=== PATIENT | female | born 1960 | race Caucasian/White ===

== ENCOUNTER 2022-03-28 08:41 | Outpatient (REF) | payer OTHER, SELFPAY ==
--- NOTE | ~2022-03-28 | XR_ITS ---
EXAMINATION: XR TOES, LEFT CLINICAL INFORMATION: Injury of the left foot. COMPARISON: None TECHNIQUE: 3 views of the left toes were obtained. FINDINGS: The soft tissues appear to be mildly swollen at the lateral aspect of the fifth toe. The bones have normal alignment. The joint spaces are maintained. No fracture or subluxation. No erosions or periostitis. XR/XR toe LT min 2V IMPRESSION: No acute osseous injury in the left foot.
== END 2022-03-28 08:42 | disposition home or self-care (01) ==
LOC: HO.HMGCX 08:41
PROVIDERS: PCP Internal Medicine; Visit Provider Internal Medicine
DX: S99.922A Unspecified injury of left foot, initial encounter (principal); W19.XXXA Unspecified fall, initial encounter
CPT/HCPCS: 73660

== ENCOUNTER → 2022-12-05 07:54 | Outpatient (BNVA) | payer OTHER, SELFPAY | PROVIDERS: PCP Internal Medicine; Visit Provider Internal Medicine Rheumatology ==

== ENCOUNTER 2022-12-19 15:27 | Emergency (ER) | payer OTHER, SELFPAY ==
--- NOTE | ~2022-12-19 | CT_ITS ---
EXAMINATION: CT CHEST WITHOUT CONTRAST CLINICAL INFORMATION: Left scapula pain. Humerus/shoulder deformity. COMPARISON: None available. TECHNIQUE: Multidetector volumetric CT imaging of the chest was done. Axial MIP volume rendering provided. Sagittal and coronal reformatted images were obtained. This CT examination was performed using dose optimization techniques as appropriate, variously including the following: *Automated exposure control *Adjustment of mA and/or kV according to patient size (this includes techniques or standardized protocols for targeted exams where dose is matched to indication/reason for exam; i.e. extremities or head) *Use of iterative reconstruction technique DLP: 454 mGy-cm FINDINGS: BOLT THREADER: The lungs are expanded and clear. LUNGS: The lungs are well-expanded and clear of acute pneumonic process. There is lingular and right middle lobe platelike atelectasis. No consolidation, mass or groundglass density seen. MEDIASTINUM: The thyroid lobes are symmetric and normal. The central trachea and the bronchi are widely patent. The heart size and the great vessels are normal caliber. No abnormal size mediastinal or hilar lymph nodes seen. There is no pericardial effusion. CORONARY ARTERY CALCIFICATION: Mild coronary artery calcifications are present. PLEURA: There is no pleural effusion. No pleural mass or thickening. AXILLA: Small shotty benign lymph nodes are seen in bilateral axilla UPPER ABDOMEN: Visualized liver, spleen, pancreas and bilateral adrenal glands are unremarkable. OSSEOUS STRUCTURES: No aggressive lytic or sclerotic process seen. There is moderate ventral spondylosis there is a comminuted fracture left humeral neck with mild displacement. There is no dislocation CT/CT chest wo IV con IMPRESSION: 1. No acute cardiopulmonary process seen. 2. There is lingular and right middle lobe platelike atelectasis. 3. Comminuted left humeral neck fracture. Recommend dedicated x-rays Fleischner guidelines were followed.
--- NOTE | ~2022-12-19 | XR_ITS ---
EXAMINATION: XR KNEE, RIGHT CLINICAL INFORMATION: Acute pain COMPARISON: None available. TECHNIQUE: Four views of the right knee. FINDINGS: Anatomic alignment. No evidence of acute fracture or dislocation. Joint spaces are maintained. No significant effusion. XR/XR knee RT 3V IMPRESSION: No evidence of acute osseous abnormality.
[2022-12-19 15:36] VITALS: BP 108/60; PULSE 75; PULSE 83; RESP 18; TEMP 36.6; O2SAT 99; BMI 29.6
[2022-12-19] MEDS: oxyCODONE HCl Immed Release 5 MG TABLET PO (15:48)
[2022-12-19] MEDS: Lidocaine HCl 2 % MPF 5 ML VIAL 10 ML INFILTRATI (16:31)
--- NOTE | 2022-12-19 16:37 | ED.EXTPRO ---
HPI - Extremity Problem General Chief complaint: Extremity Injury, Upper Stated complaint: fell from standing on shoulders, per ems Time Seen by Provider: 12/19/22 16:02 Source: patient and family (Daughter) Mode of arrival: EMS History of Present Illness HPI Narrative: 62-year-old female who tripped at work over a carpet and fell forward onto her left shoulder and bilateral knees but denies head strike or loss of consciousness. She also denies any use of blood thinners. Related Data Home Medications Medication Instructions Recorded Confirmed atorvastatin 10 mg tablet 10 mg PO DAILY 03/28/22 03/28/22 famotidine 20 mg tablet 20 mg PO DAILY 03/28/22 03/28/22 hydrochlorothiazide 12.5 mg capsule 12.5 mg PO QAM 03/28/22 03/28/22 mesalamine 1,000 mg rectal 1,000 mg CA BID PRN 12/05/22 suppository Previous Rx's Medication Instructions Recorded ketorolac 10 mg tablet 10 mg PO Q6H PRN pain 5 days #20 12/19/22 tabs oxycodone 5 mg tablet 5 mg PO Q8H PRN breakthrough pain 12/19/22 #6 tabs Allergies Allergy/AdvReac Type Severity Reaction Status Date / Time No Known Allergies Allergy Verified 12/05/22 08:06 Review of Systems Review of Systems: Pertinent positives and negatives as stated in HPI PMFSH Past Medical History Source: nursing notes reviewed Medical History Arthritis of spine Back pain [place]-Walker grade 2 cystocele Breast pain Diaphragmatic hernia Fibromyalgia HBP (high blood pressure) High cholesterol Neck pain Palpitations Thyroid nodule Ulcerative proctitis Varicose veins of both legs with edema Surgical History Hx of hernia repair Hx of tubal ligation Social History Social History Household Members: Spouse Household Members Other:: Son Alcohol intake: never Patient Tobacco Use Status: Never used Tobacco Smoked in Last 30 Days: No Use of substances other than those prescribed or required for medical reasons: No Advance Directives: No Advance Directives Information Provided: No Current occupational status: employed Current occupation: Billing Physical Exam Vital Signs: Vital Signs: Last Vital Signs Temp 97.8 F 12/19/22 17:31 Pulse 74 12/19/22 17:31 Resp 16 12/19/22 17:31 BP 128/75 12/19/22 17:31 Pulse Ox 100 12/19/22 17:31 O2 Del Method Room Air 12/19/22 17:31 BMI result Body Mass Index 29.6 VITAL SIGNS: Reviewed. GENERAL: Well developed, well nourished, in no acute distress. HEAD: Normocephalic/atraumatic EYES: PERRLA, EOMI EARS: Ext canals without abnormality NOSE: Nares patent bilateral OROPHARYNX: no oral lesions noted, posterior pharynx clear NECK: Supple, no adenopathy, no midline cervical spine tenderness or step-offs noted. LUNGS: Normal breath sounds. No adventitious sounds or accessory muscle use. SpO2<99>; CHEST WALL/SHOULDER GIRDLE: No pain on palpation or noted deformities of the left clavicle, there is obvious deformity over the anterior aspect of the left shoulder with swelling and appears to have some deformity, palpation is tender over left scapula. There is no crepitus on palpation and no obvious deformity or tenderness to palpation along left chest wall. CARDIOVASCULAR: Regular rate and rhythm without noted murmurs ABDOMEN: Soft, non-tender, non-distended with bowel sounds. MUSCULOSKELETAL: No tenderness, deformities, or effusions noted on gross inspection. EXTREMITIES: No cyanosis, clubbing or edema; LEFT UPPER EXTREMITY: There is no obvious deformity of the elbow and there is full range of motion, there is no deformity of radius or ulna and there is full range of motion to include supination and pronation. SKIN: Inspection of the skin reveals no rashes NEUROLOGIC: Alert and oriented x 4. Strength and sensation to light touch were grossly intact x 4. Medications Administered Discontinued Medications Generic Name Dose Route Start Last Admin Trade Name Freq PRN Reason Stop Dose Admin Acetaminophen 975 mg 12/19/22 17:52 12/19/22 17:59 Acetaminophen 325 Mg Tablet PO 12/19/22 17:53 975 mg ONCE ONE Administration Ketorolac Tromethamine 15 mg 12/19/22 16:38 12/19/22 16:59 Ketorolac Tromethamine 30 Mg/Ml Vial IVPUSH 12/19/22 16:39 15 mg ONCE ONE Administration Lidocaine HCl 10 ml 12/19/22 16:23 12/19/22 16:31 Lidocaine Hcl 2 % Mpf 5 Ml Vial INFILTRATI 12/19/22 16:24 10 ml ONCE ONE Administration Oxycodone HCl 5 mg 12/19/22 15:45 12/19/22 15:48 Oxycodone Hcl Immed Release 5 Mg Tablet PO 12/19/22 15:46 5 mg ONCE ONE Administration Medical Decision Making Medical Decision Making MDM Narrative: Patient was experiencing carpal pedal spasms from hyperventilation but otherwise neurovascularly intact in left upper extremity which appears to be the primary injury side and suspect proximal humeral fracture and dislocation. There is some concern for possible involvement of the scapula and will proceed with CT of the chest to better characterize. Patient received oxycodone as well as having 10 cc of 2% lidocaine as an intra-articular injection for pain control. I reviewed all imaging studies and patient has obvious comminuted fracture of the left humeral neck/head. I discussed this with the orthopedist who agrees with sling and outpatient follow-up. Differential Diagnosis Please see the discussion above Consult Healthcare Provider Management of the patient was discussed with: Su[employer] Dumping Supervisor Please see the discussion above Radiology Impression Radiologist Impression: My interpretation is in agreement with radiology's impression. Discharge Plan Discharge Clinical Impression: Comminuted fracture of humerus Patient Disposition: Home, Self-Care Instructions: Arm Fracture in Adults (ED), How to Use a Sling (ED) Additional Instructions: 1. Tylenol 1000 mg, orally, every 6 hours as needed for pain control. Please do not exceed 4000 mg within 24 hours. 2. Recommend ice to unexposed skin for 5-10 minutes, 3 to 4 times a day. 3. I recommend that you sleep in a recliner to prevent unintended pain while sleeping, I recommend that you keep the sling in place unless you are doing [id number] exercises with your left wrist and elbow. 4. You have a referral to follow-up with orthopedics in should call the office in the morning to set up an appointment. Return to the ER for any worsening symptoms. Prescriptions: New ketorolac 10 mg tablet 10 mg PO Q6H PRN (Reason: pain) 5 Days Qty: 20 0RF Rx Instructions: Patient received Toradol in the emergency room. oxycodone 5 mg tablet 5 mg PO Q8H PRN (Reason: breakthrough pain) Qty: 6 0RF Rx Instructions: Partial Fill upon patient request. No Action hydrochlorothiazide 12.5 mg capsule 12.5 mg PO QAM atorvastatin 10 mg tablet 10 mg PO DAILY famotidine 20 mg tablet 20 mg PO DAILY mesalamine 1,000 mg suppository 1,000 mg CA BID PRN Referrals: Tyron Mason MD [Physician] - Renard Dai MD [Primary Care Provider] -
[2022-12-19] MEDS: Ketorolac Tromethamine 30 MG/ML VIAL 15 MG IVPUSH (16:59)
[2022-12-19 17:31] VITALS: BP 128/75; PULSE 74; RESP 16; TEMP 36.6; O2SAT 100
[2022-12-19] MEDS: Acetaminophen 325 MG TABLET 975 MG PO (17:59)
[2022-12-19 20:17] VITALS: BP 140/80; PULSE 68; RESP 16; O2SAT 99
== END 2022-12-19 20:27 | disposition home or self-care (01) ==
PROVIDERS: Emergency Provider Student in an Organized Health Care Education/Training Program; PCP Internal Medicine
DX: S42.352A Displaced comminuted fracture of shaft of humerus, left arm, initial encounter for closed fracture (principal); M25.561 Pain in right knee; M54.6 Pain in thoracic spine; R51.9 Headache, unspecified; R07.89 Other chest pain; W01.10XA Fall on same level from slipping, tripping and stumbling with subsequent striking against unspecified object, initial encounter; Y93.9 Activity, unspecified; Y92.9 Unspecified place or not applicable; Y99.9 Unspecified external cause status; Z79.899 Other long term (current) drug therapy
CPT/HCPCS: 71250; 73562; 96374; 99284; J1885

== ENCOUNTER 2023-01-02 13:09 | Outpatient (REF) | payer OTHER, SELFPAY ==
--- NOTE | ~2023-01-02 | XR_ITS ---
EXAMINATION: XR SHOULDER, LEFT XR ELBOW, LEFT CLINICAL INFORMATION: Shoulder and elbow pain. COMPARISON: CT chest 12/19/2022. TECHNIQUE: 2 views left shoulder, 3 views left elbow. FINDINGS: There is a comminuted fracture of the left humeral head and neck with mild lateral displacement of distal fracture fragments. The glenohumeral joint is intact without dislocation. No bone, joint or soft tissue abnormalities seen involving the left elbow. XR/XR elbow LT min 3V IMPRESSION: Comminuted fracture left humeral head and neck.
--- NOTE | ~2023-01-02 | XR_ITS ---
EXAMINATION: XR SHOULDER, LEFT XR ELBOW, LEFT CLINICAL INFORMATION: Shoulder and elbow pain. COMPARISON: CT chest 12/19/2022. TECHNIQUE: 2 views left shoulder, 3 views left elbow. FINDINGS: There is a comminuted fracture of the left humeral head and neck with mild lateral displacement of distal fracture fragments. The glenohumeral joint is intact without dislocation. No bone, joint or soft tissue abnormalities seen involving the left elbow. XR/XR shoulder LT min 2V IMPRESSION: Comminuted fracture left humeral head and neck.
== END 2023-01-02 13:10 | disposition home or self-care (01) ==
LOC: HO.HOSX 13:09
PROVIDERS: Visit Provider Physician Assistant
DX: S42.212A Unspecified displaced fracture of surgical neck of left humerus, initial encounter for closed fracture (principal); M25.512 Pain in left shoulder; M25.522 Pain in left elbow
CPT/HCPCS: 73030; 73080; 99202

== ENCOUNTER 2023-01-02 15:13 | Outpatient (AMB) | payer OTHER, SELFPAY ==
--- NOTE | 2023-01-02 15:36 | A.OFFVIS_ITS ---
Intake Intake Visit Reasons: fc- proximal lf humeral fx and dislocation Intake Note: Deja is 62 year old right hand dominant female who presents today for a fracture care appointment for her left - fx, DOI 12/19/22. Patient reports she tripped on the carpet and fell on the hard wood landing on her knees and trying to catch her self with both of her hands which lead her to hit her left side. She states that most of her pain is on the posterior aspect of the shoulder and it moves down to her bicep. Allergies No Known Allergies Allergy (Verified 01/02/23 15:42) HPI fc- proximal lf humeral fx and dislocation HPI Details 62-year-old right hand dominant female who presents in the office today for an evaluation of left shoulder pain. The patient presented to the ED on 12/19/2022 status post tripping at work over carpet and falling forward on to her left shoulder and bilateral knees. CT of the chest was obtained. She was placed in a sling and referred to orthopedics. She states that most of her pain is on the posterior aspect of the left shoulder that radiates down to the bicep. The patient reports left elbow pain that also began after her fall. Patient states she falls a lot. She is not sure what is causing this and feels it could be due to prior procedures or dragging her feet. She is also concerned that her glasses are causing issues with her sight and stated the floor is blurry. Patient is accompanied in the office today with her daughter. [facility] Medical History Arthritis of spine Back pain [place]-Walker grade 2 cystocele Breast pain Diaphragmatic hernia Fibromyalgia HBP (high blood pressure) High cholesterol Neck pain Palpitations Thyroid nodule Ulcerative proctitis Varicose veins of both legs with edema Surgical History Hx of hernia repair Hx of tubal ligation Social History Household Members: Spouse Household Members Other:: Son Alcohol intake: never Patient Tobacco Use Status: Never used Tobacco Current occupational status: employed Current occupation: Billing Review of Systems Const All systems reviewed & are unremarkable except as noted in HPI and below Physical Exam Const General: cooperative, healthy appearing, comfortable, no acute distress, well developed and alert Orientation/consciousness: patient oriented x3 HEENT Head: Yes normal to inspection, Yes normocephalic and Yes atraumatic Eyes General: appearance normal, both eyes and all related structures Resp Effort & Inspection: normal respiratory effort and able to speak in complete sentences Cardio Rate: regular rate Peripheral pulses: Peripheral pulses 2+ throughout GI Palpation (GI): Soft to palpation Skin Lesions: no lesions Rashes: no rashes Neuro General: patient oriented x3 Extrem Other: Left shoulder: ROM was deferred due to pain. Resolving ecchymosis from the bicep to the elbow. Able to flex, extend, pronate, and supinate elbow and perform wrist extension. Sensation intact. Office Procedures Fracture Care Fracture Billing Code: Fracture Billing Code Assessment & Plan Assessment & Plan (1) Fracture of neck of left humerus: Comment: Comminuted left humeral neck fracture 12/19/2022 Code(s): S42.212A - Unspecified displaced fracture of surgical neck of left humerus, initial encounter for closed fracture Plan Ms. Cristina Arreola is a 62-year-old right hand dominant female who presents in the office today for an evaluation of left shoulder pain. The patient presented to the ED on 12/19/2022 status post tripping at work over carpet and falling forward on to her left shoulder and bilateral knees. CT of the chest was obtained. She was placed in a sling and referred to orthopedics. She states that most of her pain is on the posterior aspect of the left shoulder that radiates down to the bicep. The patient reports left elbow pain that also began after her fall. Patient states she falls a lot. She is not sure what is causing this and feels it could be due to prior procedures or dragging her feet. She is also concerned that her glasses are causing issues with her sight and stated the floor is blurry. Patient is accompanied in the office today with her daughter. Patient states she falls a lot. She is not sure what is causing this and feels it could be due to prior procedures or dragging her feet. I will send a prescription for lidocaine patch to the pharmacy. She also inquired if she could use the CBD oil with peppermint, which she is able to do. She can apply heat to the elbow to help give relief. I educated the patient that she can come out of the sling to work on ROM exercises to work on with the elbow, hand, and wrist. I also instructed her to let the arm hang. She will be given an ultra sling, off the shelf, while in the office today. Follow up will be in 2 weeks with repeat x-rays for possible anticipation of beginning physical therapy, or sooner if needed. X-rays of the left shoulder which were obtained while in the office today and were reviewed by , Zayda Reyes PA-C, redemonstrates a comminuted left humeral neck fracture. X-rays of the left elbow which were obtained while in the office today and were reviewed by me, Zayda Reyes PA-C, revealed no acute fractures or dislocation. CT of the chest, obtained on 12/19/2022, revealed: Comminuted left humeral neck fracture. Recommend dedicated x-rays Orders: Orders XR shoulder LT min 2V 01/02/23 M25.519 - Pain in unspecified shoulder XR elbow LT min 3V 01/02/23 M25.529 - Pain in unspecified elbow Patient Instructions: Scribed for Zayda Reyes PA-C by Belinda Calhoun medical collections, on 01/02/2023 at 3:18 pm, EST. Your attestation Coding Level of Care Code New Pt Level 4 (15480) Diagnoses Fracture of neck of left humerus S42.212A CPT Codes Fracture Care - Fracture Billing Code: Fracture Billing Code ([id number])
== END 2023-01-02 16:00 | disposition home or self-care (01) ==
PROVIDERS: PCP Internal Medicine; Visit Provider Physician Assistant
DX: S42.212A Unspecified displaced fracture of surgical neck of left humerus, initial encounter for closed fracture (principal); M25.522 Pain in left elbow
CPT/HCPCS: 99204

== ENCOUNTER 2023-01-16 08:23 | Outpatient (REF) | payer OTHER, SELFPAY ==
--- NOTE | ~2023-01-16 | XR_ITS ---
EXAMINATION: XR HIP, LEFT CLINICAL INFORMATION: Left hip pain. COMPARISON: None available. TECHNIQUE: Two views of the left hip. AP pelvis. FINDINGS: PELVIS: AP view of the pelvis does not demonstrate any evidence of acute fracture or diastases. There is significant degenerative disc disease seen at the L4-L5 and L5-S1 levels. There is some mild spurring of the sacroiliac joints without evidence of fusion or widening. Changes of enthesopathy seen about the pelvis. Hip joint spaces appear maintained with some collar spurring present. LEFT HIP: There is collar spurring present about the left hip joint. No acute fracture or dislocation is evident. There appears to be a region of central osteopenia of the femoral head which appears somewhat prominent to be a normal fovea. There is some sclerosis present about this region but some of which appears to be related to the acetabulum or overlying soft tissues. No definite femoral head collapse is identified. There is a prominent bump about the superior aspect of the femoral neck consistent with impingement. XR/XR hip LT w PEL1V IMPRESSION: 1. Mild degenerative change of the hip joints. 2. bump of the left femoral neck superiorly consistent with impingement syndrome. 3. Question region of diminished density about the left femoral head which may represent early finding of avascular necrosis without evidence of femoral head collapse. MRI would be of help in further evaluation if clinically indicated. Comparison with old studies was performed at another institution could evaluate chronicity of finding.
--- NOTE | ~2023-01-16 | XR_ITS ---
EXAMINATION: XR SHOULDER, LEFT CLINICAL INFORMATION: Left shoulder pain. COMPARISON: 01/02/2023 TECHNIQUE: Two views of the left shoulder. FINDINGS: There is again noted to be a comminuted fracture of the proximal left humerus without change in alignment from study of 01/02/2023. Fracture involves the surgical neck and humeral head with some mild displacement of the greater tuberosity laterally. No dislocation is noted. There is a small amount of periosteal new bone formation present but with fracture lines still being evident. XR/XR shoulder LT min 2V IMPRESSION: No significant change in alignment of healing comminuted fracture proximal left humerus.
== END 2023-01-16 08:24 | disposition home or self-care (01) ==
LOC: HO.HOSX 08:23
PROVIDERS: Visit Provider Physician Assistant
DX: S42.212D Unspecified displaced fracture of surgical neck of left humerus, subsequent encounter for fracture with routine healing (principal); S70.02XD Contusion of left hip, subsequent encounter; W01.0XXD Fall on same level from slipping, tripping and stumbling without subsequent striking against object, subsequent encounter
CPT/HCPCS: 73030; 73502

== ENCOUNTER 2023-01-16 11:17 | Outpatient (AMB) | payer OTHER, SELFPAY ==
[2023-01-16 11:21] VITALS: BMI 29.6
--- NOTE | 2023-01-16 11:21 | A.OFFVIS_ITS ---
Intake Vital Signs 01/16/23 11:21 Height 5 ft 7 in Weight 189 lb BMI 29.6 Intake Visit Reasons: OV-proximal lf humeral fx and dislocation Intake Note: Deja is a 62 year old right hand dominant female who presents today for a follow up appointment for her left shoulder fx, DOI 12/19/22. Patient reports pinching sensation near shoulder blade. States most of her pain is in her bicep area but has had improvement with numbness. Patient states that she continues to have a intermittent burning pain in her left hip that radiates into buttocks area. Denies any numbness or tingling. Allergies No Known Allergies Allergy (Verified 01/16/23 11:22) HPI OV-proximal lf humeral fx and dislocation HPI Details 62-year-old right hand dominant female who presents in the office today for a follow up of left humerus neck fracture, which occurred on 12/19/2022 status post tripping at work over carpet and falling forward on to her left shoulder and bilateral knees. She claims to have a pinching sensation near the left shoulder blade. She states most of her pain is in her bicep area, but the numbness has improved. Patient states she still has intermittent burning pain in the left hip that radiates to the buttock. She denies numbness or tingling. [facility] Medical History Arthritis of spine Back pain [place]-Walker grade 2 cystocele Breast pain Diaphragmatic hernia Fibromyalgia HBP (high blood pressure) High cholesterol Neck pain Palpitations Thyroid nodule Ulcerative proctitis Varicose veins of both legs with edema Surgical History Hx of hernia repair Hx of tubal ligation Social History Household Members: Spouse Household Members Other:: Son Alcohol intake: never Patient Tobacco Use Status: Never used Tobacco Current occupational status: employed Current occupation: Billing Review of Systems Const All systems reviewed & are unremarkable except as noted in HPI and below Physical Exam Vital Signs: BMI result Body Mass Index 29.6 Const General: cooperative, healthy appearing and no acute distress Resp Effort & Inspection: normal respiratory effort and able to speak in complete sentences Cardio Rate: regular rate Peripheral pulses: Peripheral pulses 2+ throughout GI Palpation (GI): Soft to palpation Skin Lesions: no lesions Rashes: no rashes Extrem Other: Left shoulder: ROM was deferred due to pain. Resolving ecchymosis from the bicep to the elbow. Able to flex, extend, pronate, and supinate elbow and perform wrist extension. Sensation intact. Left hip: Able to perform straight leg raise. Tenderness to palpation over the greater trochanteric bursa. NVI. Assessment & Plan Assessment & Plan (1) Fracture of neck of left humerus: Comment: Comminuted left humeral neck fracture 12/19/2022 Code(s): S42.212A - Unspecified displaced fracture of surgical neck of left humerus, initial encounter for closed fracture (2) Contusion of left hip: Code(s): S70.02XA - Contusion of left hip, initial encounter Plan Ms. Cristina Arreola is a 62-year-old right hand dominant female who presents in the office today for a follow up of left humerus neck fracture, which occurred on 12/19/2022 status post tripping at work over carpet and falling forward on to her left shoulder and bilateral knees. She claims to have a pinching sensation near the left shoulder blade. She states most of her pain is in her bicep area, but the numbness has improved. She states the muscle in her back by the shoulder is very irritated. Patient states she still has intermittent burning pain in the left hip that radiates to the buttock. She denies numbness or tingling. The patient will begin to work with physical therapy on left shoulder ROM. Sling for comfort but encouraged ROM out of the sling. Follow up will be in 4-6 weeks, or sooner if needed. X-rays of the left shoulder which were obtained while in the office today and were reviewed by me, Zayda Reyes PA-C, revealed routine healing of the left humeral neck fracture. X-rays of the left hip which were obtained while in the office today and were reviewed by , Zayda Reyes PA-C, revealed no acute fracture or dislocation. Some osteoarthritis. Orders: Orders XR shoulder LT min 2V Today M25.519 - Pain in unspecified shoulder XR hip LT w PEL1V Today M25.559 - Pain in unspecified hip Patient Instructions: Scribed for Zayda Reyes PA-C by Belinda Calhoun, medical delivery driver, on 01/16/2023 at 11:29 am, EST. Your attestation Coding Level of Care Code Global (94220) Diagnoses Fracture of neck of left humerus S42.212A Contusion of left hip S70.02XA
== END 2023-01-16 12:18 | disposition home or self-care (01) ==
PROVIDERS: PCP Internal Medicine; Visit Provider Physician Assistant
DX: S42.212D Unspecified displaced fracture of surgical neck of left humerus, subsequent encounter for fracture with routine healing (principal); S70.02XD Contusion of left hip, subsequent encounter
CPT/HCPCS: 99213

== ENCOUNTER 2023-02-14 05:27 | Outpatient (REF) | payer OTHER, SELFPAY ==
--- NOTE | ~2023-02-14 | XR_ITS ---
EXAMINATION: XR SHOULDER, LEFT CLINICAL INFORMATION: Left shoulder pain COMPARISON: Radiographs 01/16/2023 TECHNIQUE: Two views of the left shoulder. FINDINGS: No significant change in the appearance of the comminuted humeral head fracture. Stable alignment. No definite osseous bridging. Minimal callus formation. XR/XR shoulder LT min 2V IMPRESSION: No significant change in the appearance of the comminuted humeral head fracture. Minimal callus formation.
== END 2023-02-14 05:28 | disposition home or self-care (01) ==
LOC: HO.HOSX 05:27
PROVIDERS: Visit Provider Physician Assistant
DX: S42.212D Unspecified displaced fracture of surgical neck of left humerus, subsequent encounter for fracture with routine healing (principal); M25.512 Pain in left shoulder
CPT/HCPCS: 73030

== ENCOUNTER 2023-02-14 11:21 | Outpatient (AMB) | payer OTHER, SELFPAY ==
[2023-02-14 11:28] VITALS: BMI 29.6
--- NOTE | 2023-02-14 11:28 | MHC.OFFVIS ---
Intake Vital Signs 02/14/23 11:28 Height 5 ft 7 in Weight 189 lb BMI 29.6 Handedness Right Intake Visit Reasons: OV-proximal lf humeral fx and dislocation Intake Note: Deja is 62 year old right hand dominant female who presents today for a follow up appointment for her left proximal humeral fx, DOI 12/19/22. Patient reports some discomfort and pain during and after physical therapy. She states that PT is going well but she is slowly showing improvements. Allergies No Known Allergies Allergy (Verified 02/14/23 11:32) HPI OV-proximal lf humeral fx and dislocation HPI Details 62-year-old right hand dominant female who presents in the office today for a follow up of left humerus neck fracture, which occurred on 12/19/2022 status post tripping at work over carpet and falling forward on to her left shoulder and bilateral knees. The patient reports mild discomfort and pain during and after physical therapy. She states physical therapy is going well, but she is slowly showing improvement. [facility] Medical History Arthritis of spine Back pain [place]-Walker grade 2 cystocele Breast pain Diaphragmatic hernia Fibromyalgia HBP (high blood pressure) High cholesterol Neck pain Palpitations Thyroid nodule Ulcerative proctitis Varicose veins of both legs with edema Surgical History Hx of hernia repair Hx of tubal ligation Social History Household Members: Spouse Household Members Other:: Son Alcohol intake: never Patient Tobacco Use Status: Never used Tobacco Current occupational status: employed Current occupation: Billing Review of Systems Const All systems reviewed & are unremarkable except as noted in HPI and below Physical Exam Vital Signs: BMI result Body Mass Index 29.6 Const General: cooperative, healthy appearing and no acute distress Resp Effort & Inspection: normal respiratory effort and able to speak in complete sentences Cardio Rate: regular rate Peripheral pulses: Peripheral pulses 2+ throughout GI Palpation (GI): Soft to palpation Skin Lesions: no lesions Rashes: no rashes Extrem Other: Left shoulder: ROM 20degress of FF. Able to reach side of her head. Able to flex, extend, pronate, and supinate elbow and perform wrist extension. Sensation intact. Assessment & Plan Assessment & Plan (1) Fracture of neck of left humerus: Comment: Comminuted left humeral neck fracture 12/19/2022 Code(s): S42.212A - Unspecified displaced fracture of surgical neck of left humerus, initial encounter for closed fracture (2) Contusion of left hip: Code(s): S70.02XA - Contusion of left hip, initial encounter Plan: 62-year-old right hand dominant female who presents in the office today for a follow up of left humerus neck fracture, which occurred on 12/19/2022 status post tripping at work over carpet and falling forward on to her left shoulder and bilateral knees. The patient reports mild discomfort and pain during and after physical therapy. She states physical therapy is going well, but she is slowly showing improvement. Ms. Arreola will continue to attend physical therapy to work on ROM. X-rays obtained in the office today reveal routine healing of the left proximal humerus fracture. I will submit for a topical pain compounding cream. I think this would be beneficial for the patient's pain management. She will f/u in 6 weeks with repeat x-rays, sooner if needed. Plan Ms. Arreola is a 62-year-old right hand dominant female who presents in the office today for a follow up of left humerus neck fracture, which occurred on 12/19/2022 status post tripping at work over carpet and falling forward on to her left shoulder and bilateral knees. The patient reports mild discomfort and pain during and after physical therapy. She states physical therapy is going well, but she is slowly showing improvement. X-rays of the left shoulder which were obtained while in the office today and were reviewed by me, Zayda Reyes PA-C, revealed Orders: Orders XR shoulder LT min 2V Today M25.519 - Pain in unspecified shoulder Patient Instructions: Scribed for Zayda Reyes PA-C by Belinda Calhoun medical assistant, on 02/14/2023 at 11:25 am, EST. Coding Level of Care Code Global (02729) Diagnoses Fracture of neck of left humerus S42.212A Contusion of left hip S70.02XA
== END 2023-02-14 11:58 | disposition home or self-care (01) ==
PROVIDERS: PCP Internal Medicine; Visit Provider Physician Assistant
DX: S42.212D Unspecified displaced fracture of surgical neck of left humerus, subsequent encounter for fracture with routine healing (principal); S70.02XA Contusion of left hip, initial encounter
CPT/HCPCS: 99213

== ENCOUNTER 2023-03-28 07:58 | Outpatient (REF) | payer OTHER, SELFPAY ==
--- NOTE | ~2023-03-28 | XR_ITS ---
EXAMINATION: XR SHOULDER, LEFT CLINICAL INFORMATION: Reason for Exam M25.519 - Pain in unspecified shoulder COMPARISON: Shoulder radiographs 02/14/2023 TECHNIQUE: Two views of the shoulder. FINDINGS: Again seen is a comminuted fracture of the humeral head and neck in unchanged alignment not significantly changed from prior. Mild degenerative changes of the acromioclavicular joint with degenerative spurring. Soft tissues are unremarkable. XR/XR shoulder LT min 2V IMPRESSION: Again seen is a comminuted fracture of the humeral head and neck in unchanged alignment not significantly changed from prior.
== END 2023-03-28 07:59 | disposition home or self-care (01) ==
LOC: HO.HOSX 07:58
PROVIDERS: Visit Provider Physician Assistant
DX: S42.212D Unspecified displaced fracture of surgical neck of left humerus, subsequent encounter for fracture with routine healing (principal)
CPT/HCPCS: 73030; 99212

== ENCOUNTER 2023-03-28 12:39 | Outpatient (AMB) | payer OTHER, SELFPAY ==
[2023-03-28 13:06] VITALS: BMI 29.6
--- NOTE | 2023-03-28 13:06 | MHC.OFFVIS ---
Intake Vital Signs 03/28/23 13:06 Height 5 ft 7 in Weight 189 lb BMI 29.6 Handedness Right Intake Visit Reasons: OV-proximal lf humeral fx and dislocation Intake Note: Deja is 62 year old right hand dominant female who presents today for a follow up appointment for her left proximal humeral fx, DOI 12/19/22. Patient reports she is doing well but still having discomfort. She states that PT is going well. Allergies No Known Allergies Allergy (Verified 03/28/23 13:09) HPI OV-proximal lf humeral fx and dislocation HPI Details 62-year-old female who presents in the office today for a follow up of left humerus neck fracture, which occurred on 12/19/2022 status post tripping at work over carpet and falling forward on to her left shoulder and bilateral knees. The patient reports she is doing good. She states physical therapy has been going good as well and she has noticed some improvement. She reports still having limited ROM. She states she is unable to turn on light switches or put cups above her head. She states she is unable to lift her arm any higher like it is stuck. She states she was told by physical therapy to talk about the lump she has on the left shoulder. She states she drove for the first time yesterday, 03/27/2023, and feels she did it fairly easy. She states she has struggled with using the keyboard at work and states she could not get the arm up high enough to work. [facility] Medical History Arthritis of spine Back pain [place]-Walker grade 2 cystocele Breast pain Diaphragmatic hernia Fibromyalgia HBP (high blood pressure) High cholesterol Neck pain Palpitations Thyroid nodule Ulcerative proctitis Varicose veins of both legs with edema Surgical History Hx of hernia repair Hx of tubal ligation Social History Household Members: Spouse Household Members Other:: Son Alcohol intake: never Patient Tobacco Use Status: Never used Tobacco Current occupational status: employed Current occupation: Billing Review of Systems Const All systems reviewed & are unremarkable except as noted in HPI and below Physical Exam Vital Signs: BMI result Body Mass Index 29.6 Const General: cooperative, healthy appearing and no acute distress Resp Effort & Inspection: normal respiratory effort and able to speak in complete sentences Cardio Rate: regular rate Peripheral pulses: Peripheral pulses 2+ throughout GI Palpation (GI): Soft to palpation Skin Lesions: no lesions Rashes: no rashes Extrem Other: Left shoulder: ROM 45 degress of FF and ABD. Able to reach side of her head. Able to flex, extend, pronate, and supinate elbow and perform wrist extension. Sensation intact. Assessment & Plan Assessment & Plan (1) Fracture of neck of left humerus: Comment: Comminuted left humeral neck fracture 12/19/2022 Code(s): S42.212A - Unspecified displaced fracture of surgical neck of left humerus, initial encounter for closed fracture Qualifiers: Encounter type: subsequent encounter Fracture healing: with routine healing Fracture type: closed Qualified Code(s): S42.212D - Unspecified displaced fracture of surgical neck of left humerus, subsequent encounter for fracture with routine healing Plan Ms. Arreola is a 62-year-old female who presents in the office today for a follow up of left humerus neck fracture, which occurred on 12/19/2022 status post tripping at work over carpet and falling forward on to her left shoulder and bilateral knees. The patient reports she is doing good. She states physical therapy has been going good as well and she has noticed some improvement. She reports still having limited ROM. She states she is unable to turn on light switches or put cups above her head. She states she is unable to lift her arm any higher like it is stuck. She states she was told by physical therapy to talk about the lump she has on the left shoulder. She states she drove for the first time yesterday, 03/27/2023, and feels she did it fairly easy. She states she has struggled with using the keyboard at work and states she could not get the arm up high enough to work. The patient will be referred for an MRI at [place] to further evaluate the integrity of the left shoulder. I educated the patient that she will need to bring the disc and radiology report with her for her follow up appointment and she demonstrated understanding. I would also like the patient to see Dr. Mason to further discuss if the patient needs surgical intervention. I would like for her to wait to progress to weight lifting in physical therapy until after her follow up. 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 Follow up will be after the MRI is obtained with Dr. Mason, or sooner if needed. X-rays of the left shoulder obtained while in the office today and reviewed by me, Zayda Reyes PA-C, revealed routine healing of a left humerus neck fracture. Orders: Orders XR shoulder LT min 2V Today M25.519 - Pain in unspecified shoulder Patient Instructions: Scribed for Zayda Reyes PA-C by Belinda Calhoun medical health researcher, on 03/28/2023 at 12:41 pm, EST. Coding Level of Care Code Est Pt Level 4 (91383) Diagnoses Closed fracture of neck of left humerus with routine healing, subsequent encounter S42.212D Encounter type: subsequent encounter Fracture healing: with routine healing Fracture type: closed
== END 2023-03-28 13:26 | disposition home or self-care (01) ==
PROVIDERS: PCP Internal Medicine; Visit Provider Physician Assistant
DX: S42.212D Unspecified displaced fracture of surgical neck of left humerus, subsequent encounter for fracture with routine healing (principal)
CPT/HCPCS: 99214

== ENCOUNTER 2023-04-18 09:20 | Outpatient (REF) | payer OTHER, SELFPAY ==
--- NOTE | ~2023-04-18 | XR_ITS ---
EXAMINATION: XR SHOULDER, LEFT CLINICAL INFORMATION: Pain in unspecified shoulder. COMPARISON: 03/28/2023, 02/14/2023 TECHNIQUE: Three views of the left shoulder. FINDINGS: Redemonstration of a comminuted fracture of the humeral head and neck in unchanged alignment, with increased sclerosis since 02/14/2023 suggesting some interval healing. Mild degenerative changes in the acromioclavicular joint with joint space narrowing and hypertrophic change. XR/XR shoulder LT min 2V IMPRESSION: Redemonstration of a comminuted fracture of the humeral head and neck in unchanged alignment, with increased sclerosis since 02/14/2023 suggesting some interval healing.
== END 2023-04-18 09:21 | disposition home or self-care (01) ==
LOC: HO.HOSX 09:20
PROVIDERS: Visit Provider Orthopaedic Surgery
DX: S42.212D Unspecified displaced fracture of surgical neck of left humerus, subsequent encounter for fracture with routine healing (principal)
CPT/HCPCS: 73030; 99212

== ENCOUNTER 2023-04-18 09:41 | Outpatient (AMB) | payer OTHER, SELFPAY ==
[2023-04-18 09:48] VITALS: BMI 29.6
--- NOTE | 2023-04-18 09:48 | A.OFFVIS_ITS ---
Intake Vital Signs 04/18/23 09:48 Height 5 ft 7 in Weight 189 lb BMI 29.6 Intake Visit Reasons: OV-proximal lf humeral fx and dislocation Intake Note: Deja is 62 year old right hand dominant female who presents today for a follow up appointment for her left proximal humeral fx, DOI 12/19/22. Patient reports that she is doing well, she has concerns of ROM. She is working with physical therapy but is still struggling with motion. Allergies No Known Allergies Allergy (Verified 04/18/23 09:52) HPI OV-proximal lf humeral fx and dislocation HPI Details Deja is a 62 year old woman who presents in the office today for a follow up of left humerus neck fracture after a fall, DOI: 12/19/22. This is a work-related injury. She says she is doing ok. She recently completed an MRI of her shoulder due to her limited ROM, particularly with overhead activity, and is here for a review. She states physical therapy has been going well and she has noticed some im provement. She says she is unable to turn on light switches or put cups above her head. She states she is unable to lift her arm any higher like it is stuck. [facility] Medical History Arthritis of spine Back pain [place]-Walker grade 2 cystocele Breast pain Diaphragmatic hernia Fibromyalgia HBP (high blood pressure) High cholesterol Neck pain Palpitations Thyroid nodule Ulcerative proctitis Varicose veins of both legs with edema Surgical History Hx of hernia repair Hx of tubal ligation Social History Household Members: Spouse Household Members Other:: Son Alcohol intake: never Patient Tobacco Use Status: Never used Tobacco Current occupational status: employed Current occupation: Billing Review of Systems Const All systems reviewed & are unremarkable except as noted in HPI and below Physical Exam Vital Signs: BMI result Body Mass Index 29.6 Const General: no acute distress, alert and awake Orientation/consciousness: patient oriented x3 HEENT Head: Yes normocephalic and Yes atraumatic Eyes EOM: EOMs intact bilaterally Resp Effort & Inspection: normal respiratory effort and able to speak in complete sentences Cardio Jugular venous distension: no JVD Skin General skin exam: turgor normal Rashes: no rashes Neuro General: patient oriented x3 Extrem Other: 15 deg ER 40 deg abd 60 deg FF Psych Appearance: grossly normal Affect: normal affect Attitude: cooperative Results Reviewed Results Reviewed: I personally reviewed relevant radiographs. Healing proximal humerus fracture Assessment & Plan Assessment & Plan (1) Fracture of neck of left humerus: Comment: Comminuted left humeral neck fracture 12/19/2022 Code(s): S42.212A - Unspecified displaced fracture of surgical neck of left humerus, initial encounter for closed fracture Qualifiers: Encounter type: subsequent encounter Fracture healing: with routine healing Fracture type: closed Qualified Code(s): S42.212D - Unspecified displaced fracture of surgical neck of left humerus, subsequent encounter for fracture with routine healing Plan: This is a 62 year old woman with a comminuted left humeral neck fracture, from a fall at work, DOI: 12/19/22. She is stiff and should continue PT. May return to light duty with no lifting, no left handed work and no typing. f/u 6 weeks Orders: Orders XR shoulder LT min 2V Today M25.519 - Pain in unspecified shoulder Coding Level of Care Code Est Pt Level 3 (20677) Diagnoses Closed fracture of neck of left humerus with routine healing, subsequent encounter S42.212D Encounter type: subsequent encounter Fracture healing: with routine healing Fracture type: closed
== END 2023-04-18 10:26 | disposition home or self-care (01) ==
PROVIDERS: PCP Internal Medicine; Visit Provider Orthopaedic Surgery
DX: S42.212D Unspecified displaced fracture of surgical neck of left humerus, subsequent encounter for fracture with routine healing (principal)
CPT/HCPCS: 99213

== ENCOUNTER 2023-04-29 08:00 | Outpatient (RCR) | payer OTHER, SELFPAY ==
--- NOTE | 2023-02-03 14:59 | MHC.PT.EP ---
[facility] [place] [facility] [place] [facility] [place] [facility] [address] [place] Augustin [address] [phone] F: [phone] F: [phone] F: [phone] F: [phone] Physical Therapy Plan of Care Date of Evaluation: Date of Surgery: n/a Diagnosis: displaced fx of L humerus Assessment: Patient is a 62 year old female presenting to PT with L humerus fx. Pt reports onset of pain began 12/19/2022 due to tripping and falling at work. She presents today with impairments in pain, shoulder ROM, posture, shoulder strength. 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 Pt expresses detention goal of returning to PLOF, and is motivated to work towards this in PT. Clinical presentation today is most consistent with signs and sx associated with L humerus fx sustained 12/19/2022 and pt will benefit from skilled PT 2 week x 10 weeks to address the following problems and impairments noted upon evaluation: pain, shoulder ROM, posture, shoulder strength. These problems limit the patient with the following functional activities: reaching, lifting, ADLs, work, sleep. The prescribed treatment plan of care is medically necessary. Co-morbidities of fibromyalgia were identified and taken into considerations of plan of care. Pt was educated on HEP, role of PT, prognosis, POC. Frequency and Duration: The patient will be seen 2 x week x 10 weeks Short Term Goals: Pt will demonstrate L shoulder ROM equal B in 5 weeks. Pt will demonstrate L shoulder MMT strength at least 3/5 in 5 weeks. Pt will demonstrate improved postural awareness by sitting with biomechanically correct posture without cues throughout session to improve overall postural function in 5 weeks. Snf Goals: Pt will demonstrate improved SPADI score by 13 points in 10 weeks for improved functional mobility. Pt will demonstrate ability to reach and lift pending MD clearance with min to no pain in 10 weeks for return to PLOF. Pt will demonstrate L shoulder MMT strength to 4+/5 in 10 weeks for improved ability to complete ADLs. Pt will demonstrate ability to sit for prolonged periods of time with min to no pain in10 weeks to prepare for return to work. Treatment Plan: Modalities to reduce pain, spasms and effusion. Manual therapy to restore motion and function. Therapeutic exercise to improve strength and flexibility. Neuromuscular re-education for posture and balance. Therapeutic activities to return to functional activities of daily living. Electronically signed by: Montse Torres, PT, DPT, ATC Please sign and return to therapist. Thank you for your referral.
--- NOTE | 2023-06-02 07:13 | MHC.PT.DC ---
[facility] [place] [facility] [place] Office [place] Office [address] [place] [address] [phone] F: [phone] F: [phone] F: [phone] F: [phone] Physical Therapy Discharge Report Diagnosis: displaced fx of L humerus Date of Surgery: n/a Date of Evaluation: 02/03/23 Date of Discharge: 06/02/23 Treatments to Date: Cancellations to Date: 0 No Shows to Date: 0 Discharge Status: Insurance Declined Tx Discharge Summary: Insurance has denied further PT treatment despite pt not being at PLOF. Pt to follow up with MD. Electronically signed by: Montse Torres, PT, DPT, ATC Please sign and return to therapist. Thank you for your referral.
== END 2023-06-02 07:13 | disposition home or self-care (01) ==
LOC: HO.PTCHIC 08:00
PROVIDERS: PCP Internal Medicine; Visit Provider Physician Assistant
DX: S42.212D Unspecified displaced fracture of surgical neck of left humerus, subsequent encounter for fracture with routine healing (principal)
CPT/HCPCS: 97110; 97140; 97161

== ENCOUNTER 2023-05-30 09:08 | Outpatient (REF) | payer OTHER, SELFPAY ==
--- NOTE | ~2023-05-30 | XR_ITS ---
EXAMINATION: XR SHOULDER, LEFT CLINICAL INFORMATION: Pain COMPARISON: Left shoulder x-rays 04/18/2023 TECHNIQUE: Three views of the left shoulder. FINDINGS: Comminuted fracture of the left humeral head/neck is again demonstrated. Fracture line still visualized. No significant interval callus formation. XR/XR shoulder LT min 2V IMPRESSION: Similar appearance of comminuted fracture of the left humeral head/neck.
== END 2023-05-30 09:09 | disposition home or self-care (01) ==
LOC: HO.HOSX 09:08
PROVIDERS: Visit Provider Orthopaedic Surgery
DX: S42.212D Unspecified displaced fracture of surgical neck of left humerus, subsequent encounter for fracture with routine healing (principal)
CPT/HCPCS: 73030; 99212

== ENCOUNTER 2023-05-30 09:22 | Outpatient (AMB) | payer OTHER, SELFPAY ==
--- NOTE | 2023-05-30 09:27 | A.OFFVIS_ITS ---
Intake Vital Signs 05/30/23 09:31 Height 5 ft 7 in Weight 189 lb BMI 29.6 Intake Visit Reasons: OV-proximal lf humeral fx and dislocation Intake Note: Deja is 62 year old right hand dominant female who presents today for a follow up appointment for her left proximal humeral fx, DOI 12/19/22. Patient reports that she is feeling about the same with no improvemnts. She has been working with physical therapy but workmans comp did not want to approve further session so he has to discontinued prior to full recovery. She is back to work one hour a day for 5 days a week. Allergies No Known Allergies Allergy (Verified 04/18/23 09:52) HPI OV-proximal lf humeral fx and dislocation HPI Details Deja is a 62 year old woman who presents in the office today for a follow up of left humerus neck fracture after a fall, DOI: 12/19/22. This is a work-related injury. She feels she has not made much improvement since her last appointment. She continues to have difficulty with overhead motion & activities. She has been working light duty since her last appointment, and would like to discuss work restrictions. She says that workman's comp did not want to pay for continued PT so she had to discontinue sessions before completed. [facility] Medical History Varicose veins of both legs with edema Ulcerative proctitis Thyroid nodule Back pain Palpitations Neck pain High cholesterol HBP (high blood pressure) Fibromyalgia Diaphragmatic hernia Breast pain Arthritis of spine [place]-Walker grade 2 cystocele Surgical History Hx of tubal ligation Hx of hernia repair Social History Household Members: Spouse Household Members Other:: Son Alcohol intake: never Patient Tobacco Use Status: Never used Tobacco Current occupational status: employed Current occupation: Billing Review of Systems Const All systems reviewed & are unremarkable except as noted in HPI and below Physical Exam Vital Signs: BMI result Body Mass Index 29.6 Const General: no acute distress, alert and awake Orientation/consciousness: patient oriented x3 HEENT Head: Yes normocephalic and Yes atraumatic Eyes EOM: EOMs intact bilaterally Resp Effort & Inspection: normal respiratory effort and able to speak in complete sentences Cardio Jugular venous distension: no JVD Skin General skin exam: turgor normal Rashes: no rashes Neuro General: patient oriented x3 Extrem Other: 10 deg ER abd minimal without scapular recruitment scapular winding left Psych Appearance: grossly normal Affect: normal affect Attitude: cooperative Results Reviewed Results Reviewed: I personally reviewed relevant radiographs. Healing proximal humerus fracture. Acceptable alignment Assessment & Plan Assessment & Plan (1) Fracture of neck of left humerus: Comment: Comminuted left humeral neck fracture 12/19/2022 Code(s): S42.212A - Unspecified displaced fracture of surgical neck of left humerus, initial encounter for closed fracture Qualifiers: Encounter type: subsequent encounter Fracture healing: with routine healing Fracture type: closed Qualified Code(s): S42.212D - Unspecified displaced fracture of surgical neck of left humerus, subsequent encounter for fracture with routine healing Plan: ROM with PT especially ER and scapular stabilization. Continue current work restrictions Plan Scribed for Tyron Mason MD by Colton Gallegos director medical surgical, on 05/30/23 at 9:45 AM, EST. Orders: Orders XR shoulder LT min 2V Today M25.519 - Pain in unspecified shoulder PT Evaluation and Treatment Today S42.212A - Unspecified displaced fracture of surgical neck of left humerus, initial encounter for closed fracture Coding Level of Care Code Est Pt Level 3 (80018) Diagnoses Closed fracture of neck of left humerus with routine healing, subsequent encounter S42.212D Encounter type: subsequent encounter Fracture healing: with routine healing Fracture type: closed
[2023-05-30 09:31] VITALS: BMI 29.6
== END 2023-05-30 10:32 | disposition home or self-care (01) ==
PROVIDERS: PCP Internal Medicine; Visit Provider Orthopaedic Surgery
DX: S42.212D Unspecified displaced fracture of surgical neck of left humerus, subsequent encounter for fracture with routine healing (principal)
CPT/HCPCS: 99213

== ENCOUNTER 2023-09-01 08:00 | Outpatient (RCR) | payer OTHER, SELFPAY | END 2023-10-02 13:40 | disposition home or self-care (01) | LOC: HO.PTCHIC 08:00 | PROVIDERS: PCP Internal Medicine; Visit Provider Physician Assistant | DX: M75.02 Adhesive capsulitis of left shoulder (principal) | CPT/HCPCS: 97110; 97161 ==